=== PATIENT | male | born 1970 | race Caucasian/White ===

== ENCOUNTER 2024-11-23 15:55 | Emergency (ER) | payer SELFPAY ==
[~2024-11-23] VITALS: Ht 170.2 cm; Wt 67.0 kg
[2024-11-23 16:09] VITALS: BP 137/58; PULSE 62; RESP 18; TEMP 36.7; O2SAT 99
[2024-11-23 17:53] VITALS: TEMP 98
[2024-11-23] MEDS: ACETAMINOPHEN 500MG TABLET PO ONE (17:53)
[2024-11-23] MEDS ORDERED: IBUP-2029 MT (18:00)
== END 2024-11-23 18:55 | disposition home or self-care (01) ==
LOC: ER 15:55
DX: R68.84 Jaw pain (principal); V89.2XXA Person injured in unspecified motor-vehicle accident, traffic, initial encounter; Y93.89 Activity, other specified; Y92.89 Other specified places as the place of occurrence of the external cause; Y99.8 Other external cause status
CPT/HCPCS: 99283